=== PATIENT | female | born 2000 | race Caucasian/White ===

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

== ENCOUNTER → 2018-08-08 | Outpatient (CLI) | payer MEDICAID ==
--- NOTE | 2018-08-08 21:03 | ECHOF ---
Referral Reason:R00.2 Palpitations MEASUREMENTS -------- HEIGHT: 162.6 cm WEIGHT: 63.5 kg BP: IVSd: 0.8 cm (0.6 - 1.1) LVIDd: 4.0 cm (3.9 - 5.3) LVPWd: 0.9 cm (0.6 - 1.1) IVSs: 1.0 cm LVIDs: 3.0 cm LVPWs: 1.0 cm RVIDd: 2.3 cm (< 3.3) LAESV Index (A-L): 17.29 ml/m Ao Diam: 2.5 cm (2.0 - 3.7) LA Diam: 2.3 cm (2.7 - 3.8) AV Cusp: 1.8 cm (1.5 - 2.6) EPSS: 0.5 cm MV E Seferino: 0.91 m/s MV DecT: 286 ms MV A Seferino: 0.44 m/s MV E/A Ratio: 2.08 RAP: 5.00 mmHg RVSP: 20.68 mmHg MV EF SLOPE: 162.02 mm/s (70 - 150) MV EXCURSION: 1.69 cm (> 18.000) FINDINGS -------- Sinus rhythm. This was a technically good study. The left ventricular size is normal. Left ventricular wall thickness is normal. Overall left vent ricular systolic function is normal with, an EF between 55 - 60 %. The right ventricle is normal in size and function. Normal LA size by volume 22+/-6 ml/m2. The right atrium is normal in size. The aortic valve is trileaflet, and appears structurally normal. No aortic stenosis or regurgitation. The mitral valve leaflets are mildly thickened. There is trace mitral regurgitation. Trace tricuspid regurgitation present. Right ventricular systolic pressure is normal at < 35 mmHg. There is no evidence of pulmonary hypertension. Trace/mild (physiologic) pulmonic regurgitation. The aortic root size is normal. Normal inferior vena cava with normal inspiratory collapse consistent with estimated right atrial pre ssure of 5 mmHg. There is no pericardial effusion. CONCLUSIONS -------- 1. Sinus rhythm. 2. This was a technically good study. 3. The left ventricular size is normal. 4. Left ventricular wall thickness is normal. 5. Overall left ventricular systolic function is normal with, an EF between 55 - 60 %. 6. Normal LA size by volume 22+/-6 ml/m2. 7. The aortic valve is trileaflet, and appears structurally normal. No aortic stenosis or regurgitati on. 8. The mitral valve leaflets are mildly thickened. 9. There is trace mitral regurgitation. 10. Trace tricuspid regurgitation present. 11. Right ventricular systolic pressure is normal at < 35 mmHg. 12. There is no evidence of pulmonary hypertension. 13. Trace/mild (physiologic) pulmonic regurgitation. 14. The aortic root size is normal. 15. There is no pericardial effusion. [employer] F[employer] MANAGER: Brian Serrano RDCS
--- NOTE | 2018-08-09 11:48 | EST ---
EXERCISE STRESS AGE: 18 SEX: F HT: 64" WT: 140 PROTOCOL: Stress Test STAGE: 3 DURATION OF EXERCISE: 9:00 HEART RATE REST: 87 BLOOD PRESSURE REST: 106/72 MAXIMUM HEART RATE ACHIEVED: 177 MAXIMUM BLOOD PRESSURE: 178/47 85% MPHR: 170 100% MPHR: 200 METS: 10.5 INDICATIONS: Shortness of breath/palpitations CLINICAL INFORMATION: Baseline heart rate 87 beats per minute. Baseline blood pressure 106/72 mmHg. Baseline 12-lead ECG shows sinus rhythm with normal cardiac intervals, normal ST segments. Patient exercised on a Kai protocol for 9 minutes achieving a peak heart rate of 177 beats per minute. Normal blood pressure in response to exercise. There was no ECG evidence for ischemia. No exercise-induced arrhythmias noted. Nuclear portion will be reported separately. MMODL / IJN: [id number] /
== END ==
LOC: RADNMMAIN 10:37
PROVIDERS: ATTEND Internal Medicine Clinical Cardiac Electrophysiology
DX: R55 Syncope and collapse (principal); R00.2 Palpitations
CPT/HCPCS: 93017; 93270; 93271; 93306

== ENCOUNTER → 2018-11-05 | Day surgery (SDC) | payer MEDICAID ==
[2018-10-30 15:10] VITALS: BMI 24.0
[~2018-11-05] MED LIST changes: -LACTATED RINGERS 1,000 ML IV SCH; -LIDOCAINE 1% 20 ML VIAL (10MG/ML) FOR IV START INTRADERMA PRN; +SODIUM CHLORIDE 0.9% 1,000 ML IV SCH; +SODIUM CHLORIDE 0.9% 500 ML 500 ML IV ONE
[2018-11-05 09:49] VITALS: BP 116/58; PULSE 81; RESP 16; TEMP 98
--- NOTE | 2018-11-05 11:17 | P.PCN ---
Preoperative Diagnosis: Diagnosis Recurrent dizzy spells and presyncope and syncope Twelve-lead ECG shows sinus rhythm normal AL narrow QRS normal ST segments Tilt table test per protocol Baseline blood pressure 104/61 mmHg Baseline 168 beats a minute Patient was tilted upright at an angle of 70 per protocol After 8-10 minutes heart rate increased 206 beats a minute, sinus tachycardia. A few minutes later there was a sudden drop in blood pressure to 73 mmHg systolic Patient was presyncopal Patient is laid supine her blood pressure improved to 101/58 mmHg Impression Normal twelve-lead ECG Neurocardiogenic response to upright tilting Disposition: same day
--- NOTE | 2018-11-05 11:20 | P.PRLE ---
RE: Sabrina Gamboa Dear Dr. Tanya Bennett underwent a tilt table test per protocol She experienced a neurocardiogenic response to upright tilting I would advise increasing fluid and salt intake and strengthening lower extremity muscles as well as a bit of Florinef Thank you for entrusting me with the care of the patient Warm regards Sincerely Harry Crawford
== END | disposition home or self-care (01) ==
LOC: CATHEP 09:18
PROVIDERS: ATTEND Internal Medicine Clinical Cardiac Electrophysiology
DX: R55 Syncope and collapse (principal); R42 Dizziness and giddiness
CPT/HCPCS: 81025; 93660

== ENCOUNTER 2019-10-20 04:40 | Emergency (ER) | payer MEDICAID, OTHER ==
--- NOTE | 2019-10-20 04:44 | ED ---
Recheck HPI - General Stated Complaint: Needle stick Time Seen by Provider: 10/20/19 04:41 Source: RN notes reviewed, old records reviewed Limitations: no limitations - History of Present Illness Initial Comments: This is a 19-year-old female presenting for needlestick injury accidental injury while at work. Patient has no other injuries noted. No significant history of prior exposures MD Complaint: other (Needlestick injury is noted) -: hour(s) Returns Today for: other (wound, needlestick) Symptoms Since Prior Visit: no new symptoms Associated Symptoms: none - Related Data Home Medications Medication Instructions Recorded Confirmed Escitalopram [Lexapro] 10 mg PO HS 01/17/17 10/30/18 Topiramate [Topamax] 50 mg PO HS 10/30/18 10/30/18 Allergies Allergy/AdvReac Type Severity Reaction Status Date / Time No Known Allergies Allergy Verified 10/20/19 04:51 Review of Systems ROS Statement: Those systems with pertinent positive or pertinent negative responses have been documented in the HPI. ROS Other: All systems not noted in ROS Statement are negative. Past Medical History Past Medical History: No Reported History Additional Past Medical History / Comment(s): Migraines, episodes of feeling lightheaded., See Cardiology H&P. History of Any Multi-Drug Resistant Organisms: None Reported Past Surgical History: Breast Surgery, Ear Surgery, Tonsillectomy Additional Past Surgical History / Comment(s): BILAT BMT, kassandra breast lumpectomy Past Anesthesia/Blood Transfusion Reactions: No Reported Reaction Past Psychological History: Anxiety Smoking Status: Never smoker Past Alcohol Use History: None Reported Past Drug Use History: None Reported - Past Family History Mother Family Medical History: No Reported History General Exam General appearance: alert, in no apparent distress Head exam: Present: atraumatic, normocephalic, normal inspection Eye exam: Present: normal appearance, PERRL, EOMI. Absent: scleral icterus, conjunctival injection, periorbital swelling ENT exam: Present: normal exam, mucous membranes moist Neck exam: Present: normal inspection. Absent: tenderness, meningismus, lymphadenopathy Respiratory exam: Present: normal lung sounds bilaterally. Absent: respiratory distress, wheezes, rales, rhonchi, stridor Cardiovascular Exam: Present: regular rate, normal rhythm, normal heart sounds. Absent: systolic murmur, diastolic murmur, rubs, gallop, clicks GI/Abdominal exam: Present: soft, normal bowel sounds. Absent: distended, tenderness, guarding, rebound, rigid Extremities exam: Present: normal inspection, full ROM, normal capillary refill. Absent: tenderness, pedal edema, joint swelling, calf tenderness Back exam: Present: normal inspection Neurological exam: Present: alert, oriented X3, CN II-XII intact Psychiatric exam: Present: normal affect, normal mood Skin exam: Present: warm, dry, intact, normal color. Absent: rash Course Vital Signs 10/20/19 04:47 Temperature 98 F Pulse Rate 72 Respiratory 16 Rate Blood Pressure 110/80 O2 Sat by Pulse 99 Oximetry Medical Decision Making - Medical Decision Making 19 female to the ER for evaluation patient does have needlestick, we were able to get blood from the source. Patient can be discharged home Disposition Clinical Impression: Needle stick injury of finger of left hand Disposition: HOME SELF-CARE Condition: Good Instructions (If sedation given, give patient instructions): Needle Stick Injuries (ED) Is patient prescribed a controlled substance at d/c from ED?: No Referrals: Malika Martínez III, MD [Primary Care Provider] - 1-2 days
[2019-10-20 04:51] VITALS: BP 110/80; PULSE 72; RESP 16; TEMP 98
== END 2019-10-20 05:15 | disposition home or self-care (01) ==
LOC: EC 04:40
DX: S69.92XA Unspecified injury of left wrist, hand and finger(s), initial encounter (principal); Z77.21 Contact with and (suspected) exposure to potentially hazardous body fluids; F41.9 Anxiety disorder, unspecified; Z79.899 Other long term (current) drug therapy; W46.0XXA Contact with hypodermic needle, initial encounter; Y92.69 Other specified industrial and construction area as the place of occurrence of the external cause; Y99.0 Civilian activity done for income or pay
CPT/HCPCS: 99283

== ENCOUNTER → 2020-05-12 | Outpatient (CLI) | payer MEDICAID ==
--- NOTE | 2020-05-12 10:35 | USB ---
Reason for exam: clinical finding. History: Family history of breast cancer in maternal aunt at age 70. Benign US biopsy breast VAD LT of the left breast, June 10, 2014. Indicated problem(s): palpable abnormality in the left breast. Physical Findings: Nurse Summary: 2cm movable nodule (nurse dw). US Breast Limited LT Left limited breast ultrasound including focal area of concern, retroareolar and axilla demonstrates a 2.0 x 1.8 x 1.3cm solid, hypoechoic lesion at 12 o'clock and a 0.8 x 0.6 x 0.7cm solid, hypoechoic lesion at 1 o'clock. Palpable at 12 o'clock per physician and RN. Previous multiple lesions seen. These results were verbally communicated with the patient and result sheet given to the patient on 05/12/20. ASSESSMENT: Suspicious, BI-RAD 4 RECOMMENDATION: Ultrasound core biopsy of the left breast. Called Dr. Nielsen's office with mammographic findings and has scheduled an appointment for the patient for 06/10/20 at 10:[address] Wright. Biopsy scheduled for 05/19/20 at 10:30. PRELIMINARY REPORT CALLED AND FAXED TO DR. WRIGHT ON 05/12/20.
== END | disposition home or self-care (01) ==
LOC: RADUSWWP 08:12
PROVIDERS: ATTEND Obstetrics & Gynecology Obstetrics
DX: N63.25 Unspecified lump in the left breast, overlapping quadrants (principal); N64.4 Mastodynia

== ENCOUNTER → 2020-05-19 | Day surgery (SDC) | payer MEDICAID ==
[2020-05-19 09:39] VITALS: PULSE 76; RESP 16; TEMP 97.6
[2020-05-19 11:18] VITALS: BP 105/68
--- NOTE | 2020-05-19 11:52 | USB ---
EXAMINATION TYPE: US biopsy breast VAD LT DATE OF EXAM: 05/19/2020 CLINICAL HISTORY: 19-year-old female N63. Lump/mass. TECHNIQUE: Ultrasound guided core biopsy of the 12:00 left breast. COMPARISON: 05/12/2020 FINDINGS: The procedure of ultrasound guided core biopsy was explained to the patient. Benefits, alternatives, and risks were discussed. An informed consent was then obtained. The 1.8 cm circumscribed hypoechoic mass with posterior through transmission is identified at the 12:00 position indeterminate for biopsy. Vascularity is noted. The patient was placed in supine positioning for imaging and for the procedure. The overlying skin was prepped and draped in usual sterile fashion. Lidocaine was used as anesthetic into the skin followed by lidocaine/epinephrine into the subcutaneous tissue up to area of concern in the 12:00 left breast. Under ultrasound guidance, a 13-gauge vacuum-assisted mammotome Elite biopsy gun was used to obtain 5 core samples. Given the size of the lesion and patient's age, no biopsy clip was placed. The patient tolerated the procedure well without any immediate complication. The patient was kept in the radiology department for short stay after the procedure and then discharged home in stable condition. IMPRESSION: Successful, uncomplicated ultrasound guided core biopsy of the left breast 12:00 mass, suspected fibroadenoma. Full pathology results to follow. If histology confirms benign findings, six-month follow-up ultrasound can reassess this 12:00 and also the smaller 1:00 area, also likely a fibroadenoma. Pathology Results: Benign LEFT BREAST, ULTRASOUND GUIDED CORE BIOPSY: Fibroadenoma. Recommendation Follow up ultrasound of the left breast in 6 months. (6 month follow up left breast ultrasound to reassess 12 o'clock biopsy site and smaller 1 o'clock lesion that also likely represents a benign fibroadenoma) [facility]
== END ==
LOC: RADUSWWP 09:18
PROVIDERS: ATTEND Surgery
DX: D24.2 Benign neoplasm of left breast (principal)
CPT/HCPCS: 88305; 19083; J2001

== ENCOUNTER 2021-07-04 22:27 | Emergency (ER) | payer MEDICAID, OTHER ==
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
== END 2021-07-04 22:50 | disposition home or self-care (01) ==
LOC: EC 22:27
DX: S60.475A Other superficial bite of left ring finger, initial encounter (principal); F41.9 Anxiety disorder, unspecified; W50.3XXA Accidental bite by another person, initial encounter
CPT/HCPCS: 99283

== ENCOUNTER → 2021-10-31 | Outpatient (CLI) | payer MEDICAID ==
--- NOTE | 2021-10-31 18:43 | US ---
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 GLAND SIZE: Right Lobe: 5.4 x 1.5 x 1.5 cm Overall Parenchyma: homogenous Left Lobe: 4.9 x 1.7 x 1.5 cm Overall Parenchyma: homogeneous Isthmus Thickness: 0.4 cm NODULES RIGHT: # of nodules measured on right: 0 LEFT: # of nodules measured on left: 0 ISTHMUS: # of nodules measured in the isthmus: 0 IMPRESSION: No evidence of thyroid nodule. Normal sonographic appearance of the thyroid gland. 2017 ACR TI-RADS LEVEL: *Highest TI-RADS level nodule reported
== END | disposition home or self-care (01) ==
LOC: RADUSWWP 12:08
PROVIDERS: ATTEND Family Medicine
DX: E04.9 Nontoxic goiter, unspecified (principal)
CPT/HCPCS: 76536